=== PATIENT | female | born 1990 | race American Indian/Alaskan Native ===

== ENCOUNTER 2021-08-13 18:17 | Emergency (ER) | payer MEDICAID ==
[2021-08-13 18:31] VITALS: BP 125/69
[2021-08-13] MEDS ORDERED: ACETAMINOPHEN 325 MG TAB PO ONE (18:49)
[2021-08-13] MEDS ORDERED: ONDANSETRON 4 MG ODT TAB PO ONE (18:49)
--- NOTE | 2021-08-13 18:49 | Emergency Department Report ---
ED N/V/D HPI - General Chief complaint: Abdominal Pain Stated complaint: 17WKS PREG/NAUSEA/PAIN Time Seen by Provider: 08/13/21 18:32 Source: patient Mode of arrival: Ambulatory Limitations: No Limitations - History of Present Illness Initial comments: 30-year-old female who is about 17 weeks based on her ultrasound she had a couple days ago at her NURSE PRACTITIONER PHYSICIAN ASSISTANT's office presents to the ER today with complaints of left lower quadrant abdominal pain. She states that the pain started this past Monday. She states it was intermittent at first but 2 days ago, and got constant and has been sharp in nature, and sometimes severe in the right lower quadrant. She states that the pain got worse today at work the pain got worse and she had to leave work. She states that she vomited twice today but she has been having diarrhea every day for the since monday. She states that she has already had diarrhea 3 times a day. She described as watery stools without melena, hematochezia or mucus. She denies any UTI symptoms. She denies any abnormal vaginal bleeding. She denies any apparent fever or chills. She denies any ill contacts, recent travel or recent antibiotic use or recent bad food intake. She has no significant past medical history. She is G2, P1 Ab0. Her NURSE PRACTITIONER PHYSICIAN ASSISTANT is Dr Pepe at [facility] complaint: nausea, vomiting, diarrhea, abdominal pain -: Gradual, days(s) (5) - Related Data Previous Rx's Medication Instructions Recorded Last Taken Type Promethazine [Phenergan] 25 mg PO Q6HR PRN #15 tab 08/13/21 Unknown Rx Allergies Allergy/AdvReac Type Severity Reaction Status Date / Time No Known Allergies Allergy Verified 08/13/21 18:29 ED Review of Systems ROS: Stated complaint: 17WKS PREG/NAUSEA/PAIN Other details as noted in HPI Comment: All other systems reviewed and negative Constitutional: denies: chills, fever Eyes: denies: eye pain, eye discharge, vision change ENT: denies: ear pain, throat pain, dental pain, hearing loss, epistaxis, congestion Respiratory: denies: cough, shortness of breath, SOB with exertion, SOB at rest, wheezing Cardiovascular: denies: chest pain, palpitations Gastrointestinal: abdominal pain, nausea, vomiting, diarrhea Genitourinary: denies: urgency, dysuria, frequency, hematuria, discharge, abnormal menses, dyspareunia Musculoskeletal: denies: back pain, joint swelling, arthralgia Skin: denies: rash, lesions, change in color, change in hair/nails, pruritus Neurological: denies: headache, weakness, numbness, paresthesias, confusion, abnormal gait, vertigo Psychiatric: denies: depression, auditory hallucinations, visual hallucinations, homicidal thoughts, suicidal thoughts Hematological/Lymphatic: denies: easy bleeding, easy bruising, swollen glands ED Past Medical Hx - Past Medical History Previous Medical History?: No - Surgical History Past Surgical History?: No - Medications Home Medications: Home Medications Medication Instructions Recorded Confirmed Last Taken Type Promethazine [Phenergan] 25 mg PO Q6HR PRN #15 tab 08/13/21 Unknown Rx ED Physical Exam - General Limitations: No Limitations General appearance: alert, in no apparent distress, obese - Head Head exam: Present: atraumatic, normocephalic, normal inspection - Eye Eye exam: Present: normal appearance, PERRL, EOMI Pupils: Present: normal accommodation - ENT ENT exam: Present: normal exam, mucous membranes moist - Neck Neck exam: Present: normal inspection, full ROM - Respiratory Respiratory exam: Present: normal lung sounds bilaterally. Absent: respiratory distress, wheezes, rales, rhonchi - Cardiovascular Cardiovascular Exam: Present: regular rate, normal rhythm, normal heart sounds - GI/Abdominal GI/Abdominal exam: Present: soft, tenderness (Very mild tenderness to palpation to left lower quadrant without any guarding or rebound.). Absent: distended, guarding, rebound, rigid - Neurological Exam Neurological exam: Present: alert, oriented X3, CN II-XII intact, normal gait - Psychiatric Psychiatric exam: Present: normal affect, normal mood - Skin Skin exam: Present: intact ED Course Vital Signs 08/13/21 18:29 Temperature 98 F Pulse Rate 92 H Respiratory 16 Rate Blood Pressure 125/69 [Left] O2 Sat by Pulse 96 Oximetry ED Medical Decision Making - Medical Decision Making 30-year-old female who is about 17 weeks based on her ultrasound she had a couple days ago at her NURSE PRACTITIONER PHYSICIAN ASSISTANT's office presents to the ER today with complaints of left lower quadrant abdominal pain. She states that the pain started this past Monday. She states it was intermittent at first but 2 days ago, and got constant and has been sharp in nature, and sometimes severe in the right lower quadrant. She states that the pain got worse today at work the pain got worse and she had to leave work. She states that she vomited twice today but she has been having diarrhea every day for the since monday. She states that she has already had diarrhea 3 times a day. She described as watery stools without melena, hematochezia or mucus. She denies any UTI symptoms. She denies any abnormal vaginal bleeding. She denies any apparent fever or chills. She denies any ill contacts, recent travel or recent antibiotic use or recent bad food intake. She has no significant past medical history. She is G2, P1 Ab0. Her NURSE PRACTITIONER PHYSICIAN ASSISTANT is Dr Pepe at [facility]. Urinalysis unremarkable. Patient had an ultrasound at her NURSE PRACTITIONER PHYSICIAN ASSISTANT's office about 2 days ago which she states showed that everything was fine with the baby. A Bedside ultrasound was done together with Dr. Murray which showed an active baby within the uterus with normal heartbeat of 130. Informed patient that symptoms could be related to a gastroenteritis especially since she has been having the diarrhea but she states that she started having the low abdominal discomfort the Monday and the diarrhea started only 2 days ago and she does not feel like her pain is related to gastroenteritis. Patient abdominal exam is unremarkable,- she has mild tenderness in the left lower quadrant without any guarding or rebound and abdomen is soft without any distention or rigidity. She is not toxic, she appears anxious but she is not in any significant distress, she is well-appearing and appears hydrated and she has a normal gait. Informed her that some of her pain could also be related to round ligament pain. I do not see any indication for doing any additional imaging such as a CT at this time. She also reports that her NURSE PRACTITIONER PHYSICIAN ASSISTANT has tried her on Reglan, she is currently on Zofran and it does not seem to be helping with her vomiting. Patient has not vomited in the ER since I saw her. Informed her that I can give her Phenergan for her to try, and unfortunately at this time Tylenol will be the safest thing for pain and also recommend doing a bland diet and drink lots of fluids. Also informed her that we will give her a few days off work, because she states that she stands a lot at work and that seems low abdominal discomfort. Also recommend that she talk to her NURSE PRACTITIONER PHYSICIAN ASSISTANT, may be they can give her a note for light duty where she can sit down more often. Patient expressed understanding of all instructions and agree with plan. Patient stable at time of discharge. Critical care attestation.: If time is entered above; I have spent that time in minutes in the direct care of this critically ill patient, excluding procedure time. ED Disposition Clinical Impression: Gastroenteritis, 17 weeks gestation of , Round ligament pain Disposition: HOME / SELF CARE / HOMELESS Is pt being admited?: No Does the pt Need Aspirin: No Condition: Stable Instructions: Viral Gastroenteritis, Adult, Round Ligament Pain, Orient Diet, Abdominal Pain (ED) Additional Instructions: Recommend taking the phenergan as prescribed to help with nausea and vomiting. The Phenergan can make you drowsy and so try not to operate equipment or drive while taking the medication. Recommend that you drink lots of water. You can do a bland diet as listed on your discharge instructions. Continue taking Tylenol as needed for any abdominal discomfort. I recommend follow-up with your NURSE PRACTITIONER PHYSICIAN ASSISTANT next week. Return to the ER if your abdominal pain worsens and you start having any bleeding or fever. Prescriptions: Promethazine [Phenergan] 25 mg PO Q6HR PRN #15 tab PRN Reason: Nausea Referrals: ROMY PEPE MD [Referring] - 3-5 Days Forms: Work/School Release Form(ED) Time of Disposition: 20:05
[2021-08-13 19:09] LABS: Bilirubin,Urine NEG (Negative); Blood,Urine NEG (Negative); Color,Urine Yellow (Yellow); Mucus,Urine FEW /HPF; Protein,Urine <15 mg/dL mg/dL (Negative); Urobilinogen,Urine < 2.0 mg/dL (<2.0)
--- NOTE | 2021-08-13 20:22 | Event Note ---
Date of service: 08/13/21 Face to Face: For this encounter I have reviewed the PA/SPECIAL EDUCATION [employer]ER[employer] TEACHER documentation, treatment plan, medical decision making, and I had face to face time with this patient. Patient presented with abdominal pain in the setting of . She has been seen by her pin cleaner. She has had an ultrasound done. She does report some diarrhea. She describes the pain is cramping down in the pelvis. She is very concerned that there is something going on with the child. She has not felt any movement as of yet. Patient has had no bleeding. There has been no discharge. On exam, patient is in no distress. She is very anxious. She is tearful. Abdomen remains soft. There is diffuse pelvis tenderness without rebound or guarding. There is no tenderness over McBurney's point. Bedside ultrasound was completed to evaluate for heart tones. Patient had good heart tones. There is good movement noted. She was able to visualize the screen. At this point, patient was discharged. Procedure note: Bedside ultrasound Indication: cardiac assessment Patient was supine. Female limb driver was present. Transabdominal approach was used with a curvilinear probe. The heart tones were found to be in the 130s. There was good movement. There was good fluid around the fetus. T here were no complications. The patient tolerated this without difficulty.
== END 2021-08-13 20:54 | disposition home or self-care (01) ==
LOC: ED 18:17
DX: O99.612 Diseases of the digestive system complicating pregnancy, second trimester (principal); K52.9 Noninfective gastroenteritis and colitis, unspecified; R10.2 Pelvic and perineal pain; Z3A.17 17 weeks gestation of pregnancy
CPT/HCPCS: 81001; 99283; Q0162

== ENCOUNTER 2021-08-31 22:44 | Outpatient (CLI) | payer MEDICAID ==
[2021-08-31 23:23] VITALS: BP 125/69
[2021-08-31] MEDS ORDERED: LACTATED RINGERS 1,000 ML IV ONE (23:34)
[2021-09-01 00:23] LABS: Bacteria,Urine 1+ /HPF (Negative); Bilirubin,Urine NEG (Negative); Blood,Urine NEG (Negative); Calcium Oxalate Crystals,Urine 3+; Color,Urine Yellow (Yellow); Mucus,Urine 1+ /HPF; Urobilinogen,Urine < 2.0 mg/dL (<2.0)
== END 2021-09-01 00:40 | disposition home or self-care (01) ==
LOC: TRG 22:44 → APU 22:45 → TRG 09-01 00:40
PROVIDERS: ATTEND Student in an Organized Health Care Education/Training Program
DX: Z34.92 Encounter for supervision of normal pregnancy, unspecified, second trimester (principal); Z3A.20 20 weeks gestation of pregnancy
CPT/HCPCS: 59025; 81001

== ENCOUNTER 2021-10-09 19:03 | Outpatient (CLI) | payer MEDICAID ==
[2021-10-09 20:29] VITALS: BP 122/68
[2021-10-09] MEDS ORDERED: LACTATED RINGERS 1,000 ML IV ONE (20:43)
[2021-10-09 21:53] LABS: Bacteria,Urine 1+ /HPF (Negative); Bilirubin,Urine NEG (Negative); Blood,Urine NEG (Negative); Color,Urine Yellow (Yellow); Protein,Urine <15 mg/dL mg/dL (Negative); Urobilinogen,Urine < 2.0 mg/dL (<2.0)
[2021-10-09 21:59] LABS: Amphetamine Screen,Urine Negative; Benzodiazepines Screen,Urine Negative; Cocaine Screen,Urine Negative; Methadone Screen,Urine Negative; Opiate Screen,Urine Negative
[2021-10-09 22:19] LABS: Cannabinoid Screen,Urine Positive
[2021-10-09] MEDS ORDERED: ACETAMINOPHEN 500 MG TAB PO ONE (22:58)
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
== END 2021-10-10 00:27 | disposition home or self-care (01) ==
LOC: TRG 19:03 → APU 19:10 → TRG 10-10 00:27
PROVIDERS: ATTEND Student in an Organized Health Care Education/Training Program
DX: O29.42 Spinal and epidural anesthesia induced headache during pregnancy, second trimester (principal); Z3A.25 25 weeks gestation of pregnancy
CPT/HCPCS: 59025; 76815; 80307; 81001

== ENCOUNTER 2022-08-02 07:50 | Emergency (ER) | payer MEDICAID ==
[2022-08-02] MEDS ORDERED: CYCLOBENZAPRINE 10 MG TAB PO ONE (10:52)
[2022-08-02] MEDS ORDERED: dexAMETHasone 4 MG/ML VIAL IM ONE (10:52)
[2022-08-02] MEDS ORDERED: IBUPROFEN 800 MG TAB PO ONE (10:52)
--- NOTE | 2022-08-02 11:37 | Emergency Department Report ---
ED Back Pain/Injury HPI - General Chief Complaint: Back Pain/Injury Stated Complaint: LOWER BACK PAIN Time Seen by Provider: 08/02/22 10:43 Source: patient Limitations: No Limitations - Related Data Previous Rx's Medication Instructions Recorded Last Taken Type Promethazine [Phenergan] 25 mg PO Q6HR PRN #15 tab 08/13/21 Unknown Rx Nitrofurantoin [place]/M-Cryst 100 mg PO Q12HR 5 Days #10 capsule 09/01/21 Unknown Rx [Macrobid CAP] Terconazole [Terazol 7 Vag Cream] 1 applicator VG QHS 3 Days #3 09/01/21 Unknown Rx cream.appl Cyclobenzaprine [Flexeril] 10 mg PO TID PRN #10 tablet 08/02/22 Unknown Rx Ibuprofen [Motrin] 800 mg PO Q8HR PRN #30 tablet 08/02/22 Unknown Rx predniSONE [Deltasone] 20 mg PO DAILY #5 tablet 08/02/22 Unknown Rx Allergies Allergy/AdvReac Type Severity Reaction Status Date / Time No Known Allergies Allergy Verified 08/13/21 18:29 ED Review of Systems ROS: Stated complaint: LOWER BACK PAIN Other details as noted in HPI Comment: All other systems reviewed and negative ED Past Medical Hx - Past Medical History Previous Medical History?: Yes Hx Hypertension: Yes ([facility] 2011) - Surgical History Past Surgical History?: Yes - Family History Family history: no significant - Social History Smoking Status: Former Smoker Substance Use Type: None - Medications Home Medications: Home Medications Medication Instructions Recorded Confirmed Last Taken Type Promethazine [Phenergan] 25 mg PO Q6HR PRN #15 tab 08/13/21 Unknown Rx Nitrofurantoin [place]/M-Cryst 100 mg PO Q12HR 5 Days #10 capsule 09/01/21 Unknown Rx [Macrobid CAP] Terconazole [Terazol 7 Vag Cream] 1 applicator VG QHS 3 Days #3 09/01/21 Unknown Rx cream.appl Cyclobenzaprine [Flexeril] 10 mg PO TID PRN #10 tablet 08/02/22 Unknown Rx Ibuprofen [Motrin] 800 mg PO Q8HR PRN #30 tablet 08/02/22 Unknown Rx predniSONE [Deltasone] 20 mg PO DAILY #5 tablet 08/02/22 Unknown Rx ED Physical Exam - General Limitations: No Limitations General appearance: alert, in no apparent distress - Head Head exam: Present: atraumatic, normocephalic - Eye Eye exam: Present: normal appearance - ENT ENT exam: Present: mucous membranes moist - Neck Neck exam: Present: normal inspection - Respiratory Respiratory exam: Present: normal lung sounds bilaterally. Absent: respiratory distress - Cardiovascular Cardiovascular Exam: Present: regular rate, normal rhythm. Absent: systolic murmur, diastolic murmur, rubs, gallop - GI/Abdominal GI/Abdominal exam: Present: soft, normal bowel sounds - Extremities Exam Extremities exam: Present: normal inspection - Back Exam Back exam: Present: normal inspection - Neurological Exam Neurological exam: Present: alert, oriented X3 - Psychiatric Psychiatric exam: Present: normal affect, normal mood - Skin Skin exam: Present: warm, dry, intact, normal color. Absent: rash ED Course Vital Signs 08/02/22 08:05 Temperature 98 F Pulse Rate 59 L Respiratory 16 Rate Blood Pressure 141/93 [Left] O2 Sat by Pulse 98 Oximetry Critical care attestation.: If time is entered above; I have spent that time in minutes in the direct care of this critically ill patient, excluding procedure time. ED Disposition Clinical Impression: Back pain, Muscle spasm Disposition: 01 HOME / SELF CARE / HOMELESS Is pt being admited?: No Does the pt Need Aspirin: No Condition: Stable Additional Instructions: MEDS ORDERED TODAY STAY WELL HYDRATED [employer] FOLLOW UP WITH DR AGUIAR - ORTHO OR PCP REFERRALS BELOW Referrals: SERGEY JENSEN MD [Staff Physician] - 3-5 Days JAROD AGUIAR MD [Staff Physician] - 3-5 Days Forms: Work/School Release Form(ED) Time of Disposition: 11:53
[2022-08-02 12:20] VITALS: BP 140/90
== END 2022-08-02 12:20 | disposition home or self-care (01) ==
LOC: ED 07:50
DX: M62.830 Muscle spasm of back (principal); M54.50 Low back pain, unspecified; I10 Essential (primary) hypertension; Z87.891 Personal history of nicotine dependence; Z79.899 Other long term (current) drug therapy
CPT/HCPCS: 96372; 99282; J1100